=== PATIENT | male | born 1995 | race Asian ===

== ENCOUNTER 2018-05-26 19:43 | Inpatient (IN) | payer OTHER ==
[2018-05-26] MEDS ORDERED: ONDANSETRON 4 MG/2 ML VIAL IVP ONE (19:59)
[2018-05-26] MEDS ORDERED: HYDROmorphONE/DILAUDID 1 MG/ML INJ IVP ONE (19:59)
--- NOTE | 2018-05-26 20:04 | EDPHY ---
H & P Stated Complaint: R hip pain r/t fell Time Seen by Provider: 05/26/18 19:52 HPI/ROS: CHIEF COMPLAINT: Right hip pain post mechanical fall HISTORY OF PRESENT ILLNESS: 23-year-old male arrives via private vehicle complaining of acute right hip pain. States that he was at work, was running racing with 2 other individuals when he sustained a mechanical fall, tripped and landed on his right hip region. He is unable to bear weight. He has reproducible pain with range of motion. He denies other injury. He denies: Head injury, alcohol or drug use, straddle injury, femur, tibia fibula ankle or foot injury, paresthesia. Last oral intake was 4:00 p.m. Consisting of chuck PRIMARY CARE PROVIDER: Worker's compensation REVIEW OF SYSTEMS: 10 systems reviewed and negative with the exception of the elements mentioned in the history of present illness PAST MEDICAL/SURGICAL HISTORY: no anticoagulant use, no relevant medical/ surgical history. Last oral intake SOCIAL HISTORY: denies alcohol use at time of incident PHYSICAL EXAM 1) GENERAL: Well-developed, well-nourished, alert and oriented. Appears uncomfortable Answering questions appropriately. 2) HEAD: Normocephalic, atraumatic 3) HEENT: Pupils equal, round, reactive to light bilaterally. Negative Horners. Nasopharynx, oropharynx, clear. No deformity or angulation of nose. No septal hematoma. No rhinorrhea. No oral trauma. Ears bilaterally with normal tympanic membranes. No hemotympanum. No fluid or blood in the external auditory canal. No raccoon eyes. No Laguerre sign. Teeth are normally aligned with no gross malocclusion, TMJ bilaterally nontender, facial bones nontender including the zygomatic arch, maxilla mandible. 4) NECK: No cervical collar is on. Posterior cervical spine is nontender, no stepoff, no effusion. Full range of motion which does not elicit any midline cervical spine pain, no posterior midline tenderness, no step-off. 5) LUNGS: Clear to auscultation bilaterally, no wheezes, no rhonchi, no retractions. No obvious signs of trauma. No chest wall pain. No flaring, no grunting. Moving symmetrically. No crepitus. 6) HEART: [Regular rate and rhythm, 7) ABDOMEN: No guarding, no rebound, no focal tenderness, no peritoneal signs, no signs of trauma, no ecchymosis 8) MUSCULOSKELETAL: Right lower extremity: No shortening no malrotation. Tender to palpation right greater trochanteric region. Intact skin. Soft compartments. Knee, tib-fib, ankle, foot nontender. DP PT pulses present and brisk. Otherwise, Moving all extremities, no focal areas of tenderness, no obvious trauma. 9) BACK: No midline vertebral tenderness, no fluctuance, no step-off, no obvious trauma, no visual or palpable abnormality. 10) SKIN: No laceration. No abrasion 11) : No signs of testicular or genitalia injury. DIFFERENTIAL DIAGNOSIS: In no particular order including but not limited to fracture, sprain, strain, dislocation, malignancy, pathologic fracture - Personal History Current Tetanus Diphtheria and Acellular Pertussis (TDAP): Yes - Medical/Surgical History Hx Asthma: No Hx Chronic Respiratory Disease: No Hx Diabetes: No Hx Cardiac Disease: No Hx Renal Disease: No Hx Cirrhosis: No Hx Alcoholism: No Hx HIV/AIDS: No Hx Splenectomy or Spleen Trauma: No Other PMH: denies - Social History Smoking Status: Never smoked Constitutional: Initial Vital Signs Temperature (C) 36.6 C 05/26/18 19:47 Heart Rate 67 05/26/18 19:47 Respiratory Rate 20 05/26/18 19:47 Blood Pressure 117/74 05/26/18 19:47 O2 Sat (%) 97 05/26/18 19:47 O2 Delivery Mode Room Air O2 (L/minute) 2 Allergies/Adverse Reactions: No Known Allergies Allergy (Unverified 05/26/18 19:47) Home Medications: Medication Instructions Recorded NK [No Known Home Meds] 05/26/18 Medical Decision Making - Diagnostics Imaging Results: Imaging Impressions Chest X-Ray 05/26/18 00:00 IMPRESSION: No evidence for acute cardiopulmonary abnormality. Hip X-Ray 05/26/18 19:59 Impression: Comminuted, angulated, and displaced fracture of the right femoral neck which may be pathologic. Images reviewed myself ED Course/Re-evaluation: 8:04 p.m.: Will obtain x-rays. Last oral intake at 4:00 p.m. consisting of pizza. Will administer analgesia. I saw this patient independently based on established practice protocols. Care of patient under supervision of secondary supervising physician Dr Rodrigez with whom I discussed case. 8:37 p.m.: Re-evaluation. Discussed his imaging results. Denies known history of malignancy . Remains NPO since 4:00 p.m.. Will contact Orthopedics. 8:45 p.m.: Consultation Dr. Kirit Reyes who will plan on surgery tomorrow given the patient since last oral intake. Requests CT of pelvis - Data Points Laboratory Results: Laboratory Results 05/26/18 20:07 05/26/18 20:07 05/26/18 05/26/18 05/26/18 20:07 20:07 20:07 WBC 10.25 10^3/uL H 10^3/uL (3.80-9.50) RBC 4.99 10^6/uL 10^6/uL (4.40-6.38) Hgb 15.1 g/dL g/dL (13.7-17.5) Hct 45.4 % % (40.0-51.0) MCV 91.0 fL fL (81.5-99.8) MCH 30.3 pg pg (27.9-34.1) MCHC 33.3 g/dL g/dL (32.4-36.7) RDW 12.9 % % (11.5-15.2) Plt Count 293 10^3/uL 10^3/uL (150-400) MPV 10.5 fL fL (8.7-11.7) Neut % (Auto) 53.9 % % (39.3-74.2) Lymph % (Auto) 37.4 % % (15.0-45.0) Union % (Auto) 7.0 % % (4.5-13.0) Eos % (Auto) 0.8 % % (0.6-7.6) Baso % (Auto) 0.5 % % (0.3-1.7) Nucleat RBC Rel Count 0.0 % % (0.0-0.2) Absolute Neuts (auto) 5.53 10^3/uL 10^3/uL (1.70-6.50) Absolute Lymphs (auto) 3.83 10^3/uL H 10^3/uL (1.00-3.00) Absolute Monos (auto) 0.72 10^3/uL 10^3/uL (0.30-0.80) Absolute Eos (auto) 0.08 10^3/uL 10^3/uL (0.03-0.40) Absolute Basos (auto) 0.05 10^3/uL 10^3/uL (0.02-0.10) Absolute Nucleated RBC 0.00 10^3/uL 10^3/uL (0-0.01) Immature Gran % 0.4 % % (0.0-1.1) Immature Gran # 0.04 10^3/uL 10^3/uL (0.00-0.10) PT 13.4 SEC SEC (12.0-15.0) INR 1.00 (0.83-1.16) APTT 26.7 SEC SEC (23.0-38.0) Sodium 142 mEq/L mEq/L (135-145) Potassium 3.5 mEq/L mEq/L (3.3-5.0) Chloride 104 mEq/L mEq/L (97-110) Carbon Dioxide 23 mEq/l mEq/l (22-31) Anion Gap 15 mEq/L mEq/L (8-16) BUN 21 mg/dL mg/dL (7-23) Creatinine 1.1 mg/dL mg/dL (0.7-1.3) Estimated GFR > 60 Glucose 110 mg/dL H mg/dL (70-100) Calcium 10.5 mg/dL H mg/dL (8.5-10.4) Medications Given: Discontinued Medications Hydromorphone HCl (Dilaudid) 1 mg IVP EDNOW ONE Stop: 05/26/18 20:00 Last Admin: 05/26/18 20:10 Dose: 1 mg Ketorolac Tromethamine (Toradol) 15 mg IVP EDNOW ONE Stop: 05/26/18 20:50 Last Admin: 05/26/18 20:52 Dose: 15 mg Lorazepam (Ativan Injection) 1 mg IVP EDNOW ONE Stop: 05/26/18 20:50 Last Admin: 05/26/18 20:53 Dose: 1 mg Ondansetron HCl (Zofran) 4 mg IVP EDNOW ONE Stop: 05/26/18 20:00 Last Admin: 05/26/18 20:10 Dose: 4 mg Departure - Departure Disposition: [facility] Clinical Impression: Activity, running Fracture of femoral neck, right Qualifiers: Encounter type: initial encounter Fracture type: closed Qualified Code(s): S72.001A - Fracture of unspecified part of neck of right femur, initial encounter for closed fracture Condition: Fair
[2018-05-26 20:41] LABS: PLATELET COUNT 293 10^3/uL (150-400)
[2018-05-26 20:45] LABS: PROTIME(PATIENT) 13.4 SEC (12.0-15.0)
[2018-05-26] MEDS ORDERED: KETOROLAC 15 MG/1 ML SDV IVP ONE (20:49)
[2018-05-26] MEDS ORDERED: LORazepam 2 MG/ML INJ IVP ONE (20:49)
[2018-05-26] MEDS ORDERED: ceFAZolin 2 GM/DEXTROSE 100 ML IV ONE (22:56)
[2018-05-27] MEDS: traMADol 50 MG TAB PO PRN (00:29)
[2018-05-27] MEDS: LR 1,000 ML IV SCH ×2 (00:45→10:19)
[2018-05-27] MEDS: oxyCODONE IR 5 MG TAB PO PRN ×5 (05:04→22:07)
--- NOTE | 2018-05-27 09:12 | PDMN ---
Medical Necessity Medical necessity: Pt meets inpt criteria per MD order and [facility], Hip: Displaced Fracture of Femoral Neck, Hemiarthroplasty, inpt only surgery, 3 days. Pt admitted with R hip pain after fall, x-ray shows displaced fracture of the R femoral neck, ortho consult, requires surgical intervention today, anticipate >2MN for R hip surgery and post-op care.
--- NOTE | 2018-05-27 11:36 | GHP ---
DATE OF ADMISSION: 05/26/2018 REASON FOR CONSULTATION: Right femoral neck fracture. HPI: The patient is a 23-year-old male who was having a [facility]. He got bumped, fell, hit the ground, and was unable to bear weight. He was brought to the emergency department. X-rays were obtained, which showed an intertrochanteric hip fracture. Given his young age and low mechanism of injury, a CT scan was obtained, which did show a most likely benign bone cyst within that femoral neck that led to the pathologic fracture. PRIOR MEDICAL HISTORY: None. SURGICAL HISTORY: He has had finger surgery on his little finger on the left hand. MEDICATIONS: None. ALLERGIES: No known allergies. SOCIAL HISTORY: He lives here in town and works at [employer], goes to [employer]. Does not smoke. Does occasionally use alcohol. REVIEW OF SYSTEMS: No shortness of breath. No chest pain. No loss of consciousness. Otherwise review of systems is unremarkable. PHYSICAL EXAM: VITAL SIGNS in the emergency department: Blood pressure is 117/ 74, respiratory rate is 20, oxygen saturation is 97% on room air. Heart rate 67 , temperature is 36.6, alert and oriented x3. HEENT: Normocephalic, atraumatic. Extraocular muscles intact. NECK: Supple. There is no lymphadenopathy. No JVD. CHEST: Clear to auscultation. CARDIOVASCULAR: Regular rate and rhythm. ABDOMEN: Soft, nontender, nondistended. There is no hepatosplenomegaly. EXTREMITIES: Focused on the right lower extremity. Skin is intact. There is slight shortening and external rotation. Compartments are soft. Dorsalis pedis, posterior tibial pulses 2+. He is tender over the greater trochanter. Pain with passive movement of the hip. IMAGING: Both x-rays, as well as CT scan are reviewed from [facility]. They show a shortened intertrochanteric fracture. ASSESSMENT: Pathologic fracture, right femoral neck. PLAN: We will proceed with intramedullary fixation in the morning. He did eat pizza just before the incident [facility]. Will allow him to eat up until midnight and then keep him n.p.o. after that. Risks and benefits of the surgery including limited weightbearing postoperatively, risk for blood clots postop. He understands these risks and wished to proceed. Plan is for surgery in the morning. /[id number]/MODL MTDD
[2018-05-27] MEDS ORDERED: MIDAZOLAM 2 MG/2 ML VIAL IVP ONE (15:00)
--- NOTE | 2018-05-27 15:00 | PDANEPAE ---
ANE History of Present Illness traumatic femur fracture for for TFN ANE Past Medical History - Cardiovascular History Hx Hypertension: No - Pulmonary History Hx Oxygen in Use at Home: No Hx Sleep Apnea: No Sleep Apnea Screening Result - Last Documented: Negative - Endocrine History Hx Diabetes: No - Chronic Pain History Chronic Pain: No ANE Review of Systems Review of Systems: - Exercise capacity Exercise capacity: >=4 METS ANE Patient History - Allergies Allergies/Adverse Reactions: No Known Allergies Allergy (Verified 05/27/18 11:45) - Home Medications Home Medications: NK [No Known Home Meds] 05/27/18 [Last Taken Unknown] - NPO status NPO Status: no food or drink >8 hours NPO Since - Liquids (Date): 05/26/18 NPO Since - Liquids (Time): 16:00 NPO Since - Solids (Date): 05/26/18 NPO Since - Solids (Time): 16:00 - Anes Hx Anes Hx: no prior problems - Smoking Hx Smoking Status: Never smoked - Alcohol Use Alcohol Use: Occasionally - Family Anes Hx Family Anes Hx: none ANE Labs/Vital Signs - Labs Result Diagrams: 05/26/18 20:07 05/26/18 20:07 - Vital Signs Blood Pressure: 131/73 Heart Rate: 63 Respiratory Rate: 14 O2 Sat (%): 97 Height: 175.26 cm Weight: 65.771 kg ANE Physical Exam - Airway Neck exam: FROM Mallampati Score: Class 1 Mouth exam: normal dental/mouth exam - Pulmonary Pulmonary: no respiratory distress, clear to auscultation - Cardiovascular Cardiovascular: regular rate and rhythym, no murmur, rub, or gallop - ASA Status ASA Status: I ANE Anesthesia Plan Anesthesia Plan: GA w LMA
[2018-05-27] MEDS ORDERED: CEFAZOLIN 2 GM/DEXTROSE/100 ML BAG IV ONE (15:01)
[2018-05-27] MEDS ORDERED: fentaNYL 100 MCG/2 ML INJ ONE ×3 (15:05→16:50)
[2018-05-27] MEDS ORDERED: PROPOFOL 200 MG/20 ML VIAL ONE ×2 (15:05)
--- NOTE | 2018-05-27 15:19 | ASMTCMCOM ---
CM Note CM Note Notes: 23yr old male admitted after falling in a running race with friends, R femoral neck fx. To have surgery. Therapies to eval for discharge needs. CM to follow. Date Signed: 05/27/2018 03:18 PM Electronically Signed By:Dori Kumari LCSW
[2018-05-27] MEDS ORDERED: BUPIVACAINE/EPI 0.5% 30 ML SDV ONE (15:59)
[2018-05-27] MEDS ORDERED: DEXAMETHASONE 4 MG/ML VIAL ONE (16:19)
[2018-05-27] MEDS ORDERED: ONDANSETRON 4 MG/2 ML VIAL ONE (16:19)
[2018-05-27] MEDS ORDERED: NALOXONE HCL 0.4 MG/ML INJ IVP PRN (16:37)
[2018-05-27] MEDS ORDERED: ONDANSETRON 4 MG/2 ML VIAL IVP PRN (16:37)
[2018-05-27] MEDS ORDERED: PROMETHAZINE HCL 25 MG/ML INJ IVP PRN (16:37)
[2018-05-27] MEDS ORDERED: ACETAMINOPHEN 500 MG TAB PO PRN (16:37)
[2018-05-27] MEDS ORDERED: oxyCODONE IR 5 MG TAB PO PRN (16:37)
--- NOTE | 2018-05-27 16:38 | POSTANESTH ---
Post Anesthetic Evaluation Cardiovascular Status: Normal, Stable, Similar to Pre-Op Cond Respiratory Status: Normal, Stable, Similar to Pre-op Cond. Level of Consciousness/Mental Status: Can Participate in Eval, Alert and Oriented Pain Control: Adequate, Prn Tx Ordered Nausea/Vomiting Control: Adequate, Prn Tx Ordered Complications Possibly Related to Anesthesia: None Noted
--- NOTE | 2018-05-27 16:41 | POSTOPPROG ---
Post Op Note Date of Operation: 05/27/18 Surgeon: Kriit Reyes Metal Moulder: Clay Duran Anesthesiologist: Tanvi Anesthesia: GET(General Endotracheal) Pre-op Diagnosis: Pathologic fracture Rt femoral neck Post-op Diagnosis: same Procedure: Short TFN RT hip Findings: Cyst in femoral neck Inf/Abcess present in the surg proc area at time of surgery?: No EBL: 50-100 Complications: none
[2018-05-27] MEDS ORDERED: HYDROCODONE/APAP 5/325 TAB PO PRN (16:42)
[2018-05-27] MEDS ORDERED: HYDROmorphONE/DILAUDID 1 MG/ML INJ ONE (16:49)
[2018-05-27] MEDS: HYDROmorphONE/DILAUDID 1 MG/ML INJ IVP PRN ×5 (16:54→23:31)
[2018-05-27] MEDS: fentaNYL 100 MCG/2 ML INJ IVP PRN ×2 (16:56→17:08)
--- NOTE | 2018-05-27 17:03 | GOP ---
DATE OF OPERATION: 05/27/2018 SURGEON: Kirit Reyes MD COST REDUCTION ENGINEER: Clay Duran, CONCRETE [employer]ICATING SUPERVISOR, [facility]. ANESTHESIOLOGIST: Senthil Tinajero MD. PREOPERATIVE DIAGNOSIS: Pathologic fracture, right femoral neck for bony cyst. POSTOPERATIVE DIAGNOSIS: Pathologic fracture, right femoral neck for bony cyst. PROCEDURE PERFORMED: Short trochanteric fixation nail, right hip. FINDINGS: INDICATIONS: The patient is a 23-year-old male, who fell last night and sustained a femoral neck fra cture. X-rays and a CT scan were obtained which showed a bony cyst that he had fractured throughout his femoral neck. He was admitted to the hospital. Brought to the operating room today for definiti ve fixation of his fracture. DESCRIPTION OF PROCEDURE: After appropriate informed consent was obtained, patient was taken to the operating room, placed supine on the operating table. Time-out was performed. Patient was identifie d, correct site was identified, matched with the radiographs available in the room. He received 2 g of Ancef preoperatively. Following the induction of general endotracheal tube anesthesia by Dr. Teresa hwang, he was placed on the fracture table. All bony prominences were well padded. Right lower extremit y was placed in the traction boot. Left lower extremity was placed in a well-padded well-leg bay. Fluoroscopy was brought in. We gently used a little traction and internal rotation to reduce the f racture. Right hip was then prepped and draped in the usual sterile fashion. I obtained my starting point using AP fluoroscopic imaging. Then drilled our guidewire in and made a small louise incision a t the tip of his greater trochanter. Using our starting reamer, we drilled into the femoral canal and then tapped our 12 mm diameter nail into place, confirmed its position with AP lateral fluoroscopic imaging. We then used our extramedul radha guide to place our pin into the tip of the femoral head. This was confirmed with AP lateral flu oroscopic imaging. Placed a 90 mm spiral blade plate there and placed 1 distal locking screw using t he external jig as well 32 mm in diameter. Final imaging was obtained which showed the fracture to b e reduced satisfactorily, hardware to be in place. We did send samples of the bone for permanent spe cimen from the cyst when we reamed the spiral blade. The wounds were irrigated, closed with 0 Vicryl , and 2-0 Vicryl, and skin edwin. I instilled 20 mL of 0.5% Marcaine with epinephrine around the i ncisions. Sterile dressing was applied. The patient was transferred back to the hospital bed. Take n to the recovery room in satisfactory condition. There were no immediate intraoperative complicatio ns. Salvador Duran's assistance was required throughout the entire case. IMPLANTS USED: A Synthes 12 mm diameter short trochanteric fixation nail. COMPLICATIONS: None. DRAINS: None. /[id number]/MODL
[2018-05-27] MEDS: D5W 1/2 NS W/ 20 KCl/L 1,000 ML IV SCH (18:13)
[2018-05-28] MEDS: ONDANSETRON 4 MG/2 ML VIAL IVP PRN ×2 (00:36→14:48)
[2018-05-28] MEDS: oxyCODONE IR 5 MG TAB PO PRN ×6 (02:02→20:31)
[2018-05-28] MEDS: D5W 1/2 NS W/ 20 KCl/L 1,000 ML IV SCH (05:09)
[2018-05-28] MEDS: HYDROmorphONE/DILAUDID 1 MG/ML INJ IVP PRN ×2 (05:10→23:03)
[2018-05-28] MEDS: ASPIRIN EC 325 MG TAB PO SCH (08:25)
[2018-05-28] MEDS: traMADol 50 MG TAB PO PRN ×2 (08:25→19:04)
--- NOTE | 2018-05-28 10:49 | SOAPPROG ---
SOAP Progress Note Assessment/Plan: Assessment: Plan: 05/28/18 10:49 POD#1 TFN RT hip pathologic fx ASA 325 mg x 3 weeks dvt proph 50% weight bearing x 4 weeks PT/OT Subjective: up with PT today Objective: dressing changed o/n leg lengths equal calf soft 5/.5 df/pf Vital Signs Temp Pulse Resp BP Pulse Ox 36.9 C 74 16 120/79 95 05/28/18 08:00 05/28/18 08:00 05/28/18 08:00 05/28/18 08:00 05/28/18 08:00 Laboratory Results 05/28/18 04:37 05/27/18 05/28/18 05/29/18 05:59 05:59 05:59 Intake Total 2900 Output Total 300 500 Balance 2600 -500 PT 13.4 SEC (12.0-15.0) 05/26/18 20:07 INR 1.00 (0.83-1.16) 05/26/18 20:07 ICD10 Worksheet Patient Problems: Problems Problem Status Onset Activity, running Acute Fracture of femoral neck, right Acute
[2018-05-29] MEDS: oxyCODONE IR 5 MG TAB PO PRN ×4 (06:24→19:55)
[2018-05-29] MEDS: traMADol 50 MG TAB PO PRN (08:09)
[2018-05-29] MEDS: ASPIRIN EC 325 MG TAB PO SCH (10:14)
--- NOTE | 2018-05-29 12:36 | SOAPPROG ---
SOAP Progress Note Assessment/Plan: Assessment:POD#2 TFN RT hip pathologic fx. He is doing well with continued pain PE: Dressing is clean and dry Pain with gentle IR/ER of the hip NV intact RLE Calf is soft to compression without pain Plan:Plan for discharge today or tomorrow AM to home with home health. Prescriptions for pain medication in chart. ASA 325 mg x 3 weeks dvt proph 50% weight bearing x 4 weeks PT/OT 05/29/18 12:34 Objective: Vital Signs Temp Pulse Resp BP Pulse Ox 37.3 C 101 H 12 123/85 H 95 05/29/18 11:31 05/29/18 11:31 05/29/18 11:31 05/29/18 11:31 05/29/18 11:31 Laboratory Results 05/28/18 04:37 05/28/18 05/29/18 05/30/18 05:59 05:59 05:59 Intake Total 2900 900 Output Total 300 500 Balance 2600 400 PT 13.4 SEC (12.0-15.0) 05/26/18 20:07 INR 1.00 (0.83-1.16) 05/26/18 20:07 ICD10 Worksheet Patient Problems: Problems Problem Status Onset Activity, running Acute Fracture of femoral neck, right Acute
--- NOTE | 2018-05-29 12:39 | PDIAF ---
- Diagnosis Diagnosis: right femur fracture Code Status: Full Code - Medication Management Discharge Medications: Medications to Continue on Transfer Aspirin EC [Aspirin EC 325 mg (*)] 325 mg PO DAILY #20 tab 05/29/18 [Last Taken Unknown] oxyCODONE IR [Oxycodone Ir (*)] 5 - 10 mg PO Q4HRS PRN #30 tab 05/29/18 [Last Taken Unknown] traMADol [Ultram 50 mg (*)] 50 mg PO Q6HRS PRN #30 tab 05/29/18 [Last Taken Unknown] Discharge Medications: Refer to the Discharge Home Medication list for PRN reason. - Orders Services needed: Home Care, Physical Therapy, Occupational Therapy Home Care Face to Face: I certify that this patient was under my care and that I had the required [id number] encounter meeting the encounter requirements on the discharge day. My findings support the fact that the patient is homebound as defined in Home Care Face to Face Continued: CMS Chapter 7 Medicare Benefits Manual 30.1.1 , The condition of the patient is such that there exists a normal inability to leave home and consequently, leaving home would require a considerable and taxing effort. Diet Recommendation: no restrictions on diet Diet Texture: Regular Texture Diet Additional Instructions: PWB 40% with assistance RLE for 4 weeks ASA for DVT prophylaxis Prescription for pain medication in chart Follow up in 7-10 days for repeat evaluation, wound check, and repeat radiograph - Follow Up Care Current Providers and Referrals: Kirit Reyes MD [Medical Doctor] - NONE *PRIMARY CARE P,. [Primary Care Provider] -
--- NOTE | 2018-05-29 15:23 | ASMTCMCOM ---
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 CM made referrals for several home care agencies to provide PT for patient after discharge tomorrow. Father is returning to [place] after patient disharges. Patient's father will arrange 24 hr. sitter to stay with patient until pt able to fly to [place] to be with family in one week when medically possible. Plan: D/C home tomorrow with 24 hr. sitter plan after his father flies back to [place]. Date Signed: 05/29/2018 03:23 PM Electronically Signed By:Tamara Urbina
[2018-05-29] MEDS ORDERED: BISACODYL 10 MG SUPP PR PRN (15:38)
[2018-05-29] MEDS ORDERED: POLYETHYLENE GLYCOL 3350 17 GM PKT PO PRN (15:38)
[2018-05-29] MEDS ORDERED: LACTULOSE 20 GM/30 ML UDCUP PO PRN (15:38)
[2018-05-29] MEDS: MAGNESIUM HYDROXIDE 30 ML UDCUP PO PRN (15:54)
[2018-05-29] MEDS: METHOCARBAMOL 750 MG TAB PO SCH ×2 (16:58→22:25)
[2018-05-29] MEDS: SENNOSIDES/DOCUSATE SODIUM TAB PO SCH (19:56)
[2018-05-29] MEDS: HYDROmorphONE/DILAUDID 1 MG/ML INJ IVP PRN (21:03)
[2018-05-30] MEDS: oxyCODONE IR 5 MG TAB PO PRN ×3 (00:29→08:39)
[2018-05-30] MEDS: HYDROmorphONE/DILAUDID 1 MG/ML INJ IVP PRN (03:47)
[2018-05-30] MEDS: METHOCARBAMOL 750 MG TAB PO SCH ×2 (03:47→10:35)
[2018-05-30 08:08] VITALS: BP 118/75
[2018-05-30] MEDS: MAGNESIUM HYDROXIDE 30 ML UDCUP PO PRN (08:39)
[2018-05-30] MEDS: SENNOSIDES/DOCUSATE SODIUM TAB PO SCH (08:48)
[2018-05-30] MEDS: ASPIRIN EC 325 MG TAB PO SCH (08:48)
--- NOTE | 2018-05-30 15:40 | ASMTCMCOM ---
CM Note CM Note Notes: Securing HHC with [employer] insurance is a challene: over 20 HHC agencies declined pt due to [employer] insurance or staffing shortage. [facility] is only [facility] able to open pt with only 60% insurance coverage. Pt and father decline [facility], pt father is staying with pt until pt can fly Monday. Pt will d/c to [facility] with father support/supervision until he can go to [place] Monday. Date Signed: 05/30/2018 03:39 PM Electronically Signed By:HERMELINDA Camacho
--- NOTE | 2018-05-30 15:42 | ASMTLACE ---
LACE Length of stay for Answers: 4-6 days current admission Acuity / Level of Answers: Yes Care: Did the patient have an inpatient admission? Comorbidities - select Answers: Other Notes: R femoral neck fx all that apply # of Emergency department Answers: 1-2 visits in the last 6 months Score: 9 Date Signed: 05/30/2018 03:42 PM Electronically Signed By:HERMELINDA Camacho
--- NOTE | 2018-05-30 16:49 | ASDISCHSUM ---
Discharge Information Plan Status:Home with Home Health Medically Cleared to Leave: Discharge Date:05/30/2018 11:11 AM CM D/C Disposition:Home Health Service ADT D/C Disposition:Home, Routine, Self-Care Projected Discharge Date:05/29/2018 11:00 AM Transportation at D/C:Family Discharge Delay Reason: Follow-Up Date:05/29/2018 11:00 AM Discharge Slot: Final Diagnosis:R femoral neck fx Placement Information Referral Type:*Home Health Care Services Referral ID:[id number] Provider Name: Address 1: Phone Number: Address 2: Fax Number: City: Selection Factors: State: Patient Contact Information Contact Name:AGUSTIN Relationship:Father Address: Work Phone: City: [facility] Phone: [facility] Code: Email: Financial Information Financial Class:HMO and PPO Plans Primary Plan Desc:YULISSA PPO POS HMO SIG ADM Primary Plan Number:[id number] Secondary Plan Desc: Secondary Plan Number: Assessment Information LACE LACE Length of stay for Answers: 4-6 days current admission Acuity / Level of Answers: Yes Care: Did the patient have an inpatient admission? Comorbidities - select Answers: Other Notes: R femoral neck fx all that apply # of Emergency department Answers: 1-2 visits in the last 6 months Score: 9 Date Signed: 05/30/2018 03:42 PM Electronically Signed By:HERMELINDA Camacho [facility] Progress Note CM Note CM Note Notes: 23yr old male admitted after falling in a running race with friends, R femoral neck fx. To have surgery. Therapies to eval for discharge needs. CM to follow. 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 CM made referrals for several home care agencies to provide PT for patient after discharge tomorrow. Father is returning to [place] after patient disharges. Patient's father will arrange 24 hr. sitter to stay with patient until pt able to fly to [place] to be with family in one week when medically possible. Plan: D/C home tomorrow with 24 hr. sitter plan after his father flies back to [place]. Date Signed: 05/29/2018 03:23 PM Electronically Signed By:Tamara Urbina [facility] Progress Note CM Note CM Note Notes: Securing C with [employer] insurance is a challene: over 20 HHC agencies declined pt due to [employer] insurance or staffing shortage. [facility] is only [facility] able to open pt with only 60% insurance coverage. Pt and father decline [facility], pt father is staying with pt until pt can fly Monday. Pt will d/c to [facility] with father support/supervision until he can go to [place] Monday. Date Signed: 05/30/2018 03:39 PM Electronically Signed By:HERMELINDA Camacho Intervention Information Intervention Type:No Admission Order Date of Service:05/27/2018 08:39 AM Patient Type:Observation Staff Member:GIGI Lucio Patricia Hours: Discipline: Severity: Comment:
== END 2018-05-30 11:11 | disposition home or self-care (01) | DRG 482 ==
LOC: F3N 21:53 → OBSVTOIN 05-27 08:45
PROVIDERS: ADMIT Orthopaedic Surgery; ATTEND Orthopaedic Surgery
PROC: 0QS634Z Reposition Right Upper Femur with Internal Fixation Device, Percutaneous Approach (ICD-10-PCS; principal; 2018-05-27 15:00)
DX: M84.451A Pathological fracture, right femur, initial encounter for fracture (principal); W03.XXXA Other fall on same level due to collision with another person, initial encounter; Y93.02 Activity, running; M85.48 Solitary bone cyst, other site
CPT/HCPCS: 96374; 97116-GP; 97161-GP; 97165-GO; 97530-GP; 97535-GO; C1713; J0690; J1100; J1170; J1885; J2060; J2250; J2405; J2704; J3010